=== PATIENT | female | born 1965 | race Caucasian/White ===

== ENCOUNTER 2022-09-20 15:37 | Outpatient (CLI) | payer OTHER, SELFPAY ==
--- NOTE | 2022-09-20 15:40 | CRLHL7_ITS ---
For Patients: As a result of the Century Cures Act, medical imaging exams and procedure reports are released immediately into your electronic medical record. You may view this report before your referring provider. If you have questions, please contact your health care provider. BILATERAL SCREENING MAMMOGRAM WITH COMPUTER-AIDED DETECTION AND TOMOSYNTHESIS TECHNIQUE: CC and MLO views were obtained. These mammographic images have been obtained using full-field digital technique. These mammographic images were interpreted with the benefit of computer-aided detection. Breast Tomosynthesis was used in this interpretation. COMPARISON FILM: 08/06/17, 03/11/14, 01/29/11. FINDINGS: The breasts are heterogeneously dense, which may obscure small masses IMPRESSION: There is no radiographic evidence for malignancy. ASSESSMENT: BI-RADS Category 1: Negative RECOMMENDATION: Routine screening mammogram in 1 year. A lay language report of this examination will be provided to the patient. Levon Daigle M.D. Diagnostic Radiologist [email or web address] DIPTI/jethro morelos/Dictated by: Levon Daigle MD @ 09/21/2022 9:11:00 AM (Electronically Signed)
== END 2022-09-20 15:38 | disposition home or self-care (01) ==
LOC: MAMMO 15:39
DX: Z12.31 Encounter for screening mammogram for malignant neoplasm of breast (principal)
CPT/HCPCS: 77063; 77067

== ENCOUNTER 2024-03-10 13:47 | Outpatient (CLI) | payer OTHER, SELFPAY ==
--- OUTSIDE RECORDS SUMMARY | 2024-03-10 13:50 | XMS_ITS | Encounter Summary ---
Author Name Unknown Organization [facility] Address [address] [place] [address] Care Team Providers Care Knotting Machine Operator Name Role Phone Marcia Diallo MD Primary Care Provider [phone] Reason for Visit * Reason Onset Date Comments Refill 02/24/2024 ipratropium (ATR OVENT) 0.06 % nasal solution Encounter Details Date Type Department Care Team (Late st Contact Info) Description 02/24/2024 Refill [facility] [address] [place] [phone] [place] [address] [place] [phone] Refill (ipratropium (ATROVENT) 0.06 % nasal solution) Social History Tobacco Use Types Packs/Day Years Used Date Smoking Tobacco: Never Smokeless Tobacco: Never Alcohol Use Standard Drinks/Week Comments Not Currently 0 (1 standard drink = 0.6 oz pur e alcohol) Occasional cocktail when out PHQ-2 Answer Date Recorded PHQ-2 Score 1 12/26/2023 Financial Resource Strain Answer Date R ecorded Is it hard for you to pay fo r the very basics like food, housing, medical care or heating? No 12/26/2023 Food Insecurity Answer Date Recorded Does your food run out before you have the money to buy more? No 12/26/2023 Transportation Needs Answer Date Record ed Does a lack of transportatio n keep you from your medical appointments or from getting your medications? No 024 Sex and Gender Information Value Date Recorded Sex Assigned at Not on file Gender Identity Not on file Sexual Orientation Not on file documented as of this encounter Nursing Notes * Kasandra Ramos RN - 02/26/2024 11:00 AM CDT Further Assistance Needed on Refill from Clinician RN reviewed. Medication ordered for short term. Pharmacy requesting 90 day supply Review pended order for accuracy and sign if appropriate Requested Prescriptions Pending Prescriptions Disp Refills ipratropium (ATROVENT) 0.06 % nasal solution 15 mL 5 Sig: Place 2 Sprays into both nostrils 4 times a day. * Porsha Maldonadowifahad Xrwcomm - 02/24/2024 9:49 AM CDT ipratropium (ATROVENT) 0.06 % nasal solution Miscellaneous - 12 Month Visit 1 -> Refill x 12 months (until due for an office visit) -> Calculate the quantity and number of refills manually. Last qualifying visit: 12/26/2023 (with MARCIA DIALLO) Next scheduled visit: None Last ordered by MARCIA DIALLO: 12/26/2023 (60 days ago) QTY: 15, Refills: 5, Sig: place 2 sprays into both nostrils 4 times a day. (unchanged) [facility] Embedded Refills, Reference: [id number], 02/24/2024 9:49:48 AM CDT, Venu: Refill Centralized Services - Primary Care ([id number]) documented in this encounter Plan of Treatment Upcoming Encounters Date Type Department Care Team (Late st Contact Info) Description 05/26/2024 12:30 PM CDT Appointment [facility] Audiology [address] [place] [address]. [place], [place] [phone] Anu Ignacio AU.D. [address] [place] [phone] documented as of this encounter Visit Diagnoses Diagnosis Runny nose Other diseases of nasal cavity and sinuses documented in this encounter Care Teams Knotting Machine Operator Relationship Specialty Start Date End Date Marcia Diallo MD [address] [place] [id number] PCP - General 10/16/02 documented as of this encounter
--- OUTSIDE RECORDS SUMMARY | 2024-03-10 13:50 | XMS_ITS | Clinical Summary ---
Author Name Unknown Organization [facility] Address [address] [place] [address] Care Team Providers Care Teacher Asst Name Role Phone Marcia Diallo MD Primary Care Provider Source Comments You are receiving this document as you are listed as the primary care provider,follow-up provider, or the patient has been referred to you for consultation.This is in compliance with the Medicare and[facility] EHR Incentive Program,which states Providers who transition their patient to another setting of careor provider of care or refers their patient to another provider of care shouldprovide summary care record for each transition of care or referral. [facility] Allergies No known active allergies Medications Medication Sig Dispensed Refills Start Date End Date Status metroNIDAZOLE (METROGEL) 1 % gelIndications:Perio ral dermatitis Apply twice daily to face 45 g 11 03/22/2022 Active terbinafine (LAMISIL) 250 MG tabletIndications:On ychomycosis Take 1 Tablet (250 mg) by mouth daily. 90 Tablet 12/26/2023 Active estradiol (ESTRACE) 0.1 MG/GM vaginal creamIndications:Atr ophic vulvovaginitis Insert 0.5 g vaginally two times a week. 42.5 g 3 12/26/2023 Active buPROPion (WELLBUTRIN XL) 150 MG 24 hour release tabletIndications:Ma didier depressive disorder, recurrent episode, in full remission (HRC) Take 2 tablets (300 mg) by mouth daily 180 Tablet 3 12/26/2023 Active famotidine (PEPCID) 20 MG tablet Take 1 Tablet (20 mg) by mouth two times a day. 180 Tablet 3 01/14/2024 Active ipratropium (ATROVENT) 0.06 % nasal solutionIndications: Runny nose Place 2 Sprays into both nostrils 4 times a day. 45 mL 3 02/26/2024 Active ipratropium (ATROVENT) 0.06 % nasal solutionIndications: Runny nose Place 2 Sprays into both nostrils 4 times a day. 15 mL 5 12/26/2023 Discontinue d(*Med change OR same med OR reorder, new dose/direct ions) Active Problems No known active problems Resolved Problems Problem Noted Date Diagnosed Date Resolved Date Cervical cancer screening 09/04/2016 Overview: 2006 NILM 2011 NILM 2015 NILM, HPV negative 51 y.o. 2023 NILM HPV negative 59 y.o. PLAN, per ASCCP Guidelines: Cotest 12/2028 Stress fracture of metatarsal bone 12/28/2015 08/30/2016 Vitamin D insufficiency 12/28/201503/25 Encounters Date Type Department Care Team Description 02/24/2024 [address] [place] [address] Marcia Diallo MD Refill (ipratropium (ATROVENT) 0.06 % nasal solution) 01/10/2024 [address] [place] [address] Marcia Diallo MD Refill (famotidine (PEPCID) 20 MG tablet) 12/26/2023 10:40 AM SILHOUETTE ARTIST Office Visit [address] [place] [address] Marcia Diallo MD Routine health maintenance (Primary Dx); Encounter for screening mammogram for malignant neoplasm of breast; Hearing difficulty, unspecified laterality; Atrophic vulvovaginitis; Nasal congestion; Onychomycosis; Colon cancer screening; Screening for malignant neoplasm of cervix; Special screening examination for human papillomavirus (HPV); Need for hepatitis C screening test; Lipid screening; Diabetes mellitus screening; Major depressive disorder, recurrent episode, in full remission (HRC); Runny nose 12/26/2023 E-Visit [facility] [address] [facility] [place] [address] Mychart, Generic Provider from Last 3 Months Immunizations Name Administration Dates Next Due Flu Vac (3+ yrs) 09/09/2013,09/29/2012, 7 HepB Adult (Engerix-B, 20+ y rs, 3 dose series) 08/30/2016,09/08/2014,06/02/2014 Influenza IIV4 (Quadrivalent ) 0.5mL (83173) 10/31/2023,07/17/2022,07/13/2021, 020,07/02/2019,09/08/2014 Moderna Bivalent 12+ 07/29/2022 Moderna Monovalent 12+ 11/04/2021,2020,12/31/2020, 021 Td 11/24/1996 Tdap 09/04/2023,09/29/2012 Zoster RZV (Shingrix) 05/01/2021,07/29/2020 Family History Medical History Relation Name Comments Atrial Fib Father Son Depression Father Son anger Hyperlipidemia Father Son Hypertension Father Son Arthritis Mother Father High Cholesterol Mother Father No Known Problems Daughter 1 joint pain Daughter 2 managed with ch iro, exercise Coronary Artery Disease Maternal Grandfather in 50s Depression Maternal Grandmother Grandma Cancer, Breast Paternal Grandmother in 80 s had mastectomy Depression Paternal Grandmother Other Paternal Grandmother fibromy algia and parkinsons Depression Paternal Uncle No Known Problems Sister 1 No Known Problems Sister 2 ADHD Son Anxiety Son Depression Son GERD Son Cancer, Colon Negative Family History Cancer, Ovary Negative Family History Relation Name Status Comments Father Son Alive Mother Father Alive Daughter 1 Alive Daughter 2 Alive Maternal Grandfather Maternal Grandmother Grandma Paternal Grandfather Paternal Grandmother Paternal Uncle Sister 1 Alive Sister 2 Alive Son Alive Social History Tobacco Use Types Packs/Day Years Used Date Smoking Tobacco: Never Smokeless Tobacco: Never Tobacco Cessation:Counseling Given: Not Answered Alcohol Use Standard Drinks/Week Comments Not Currently [...] on file Sexual Orientation Not on file Last Filed Vital Signs Vital Sign Reading Time Taken Comments Blood Pressure 100/64 12/26/2023 10:53 AM SILHOUETTE ARTIST Pulse 66 12/26/2023 10:53 AM SILHOUETTE ARTIST Temperature 36.3 ??C (97.4 ??F) 12/26/2023 10:[address] Respiratory Rate 18 06/22/2015 3:34 PM CDT Oxygen Saturation 98% 12/14/2021 11:19 AM SILHOUETTE ARTIST Inhaled Oxygen Concentration - - Weight 55.8 kg (123 lb) 12/26/2023 10:53 AM SILHOUETTE ARTIST Height 170.2 cm (5' 7) 12/26/2023 10:53 AM SILHOUETTE ARTIST Body Mass Index 19.26 12/26/2023 10:53 AM SILHOUETTE ARTIST Plan of Treatment Upcoming Encounters Date Type Department Care Team (Late st Contact Info) Description 05/26/2024 12:30 PM CDT [facility] [address] [facility] [place] [address] Anu Ignacio AU.D. [address] [place] [address] Health Maintenance Due Date Last Done Comments Colonoscopy 1966 FIT Colon Cancer Screening 2010 Mammogram 12/01/2021 12/01/2020, 07/26, 01/29/2011 COVID-19 Vaccine ( season) 2023 07/29/2022, 11/04/2021, 01/07/2021, Additional history exists Adult Preventive Visit 12/26/2024 , 08/30/2016, 03/02/2014, Additional history exists Cervical Cancer Screening 12/26/20282023, 08/30/2016, 09/29/2012, Additional history exists Cholesterol 12/26/2028 12/26/2023, 02/24, 08/30/2016, Additional history exists DTaP/Tdap/Td (3 - Tdap) 09/04/2033 09/04/20, 09/29/2012, 11/24/1996 HIV Screening (Preventive Services) Completed 08/30/2016 HepB Completed 08/30/2016, 08/25, 06/02/2014 Zoster/Shingles Completed 05/01/2021, 07/29/2020 Influenza Completed 10/31/2023, 06/26, 07/13/2021, Additional history exists Hep C Screening (Preventive Services) Completed 12/26/2023 HepA Aged Out No longer eligi ble based on patient's age to complete this topic Hib Aged Out No longer eligi ble based on patient's age to complete this topic IPV (Polio) Aged Out No longer eligi ble based on patient's age to complete this topic MCV4 Aged Out No longer eligi ble based on patient's age to complete this topic Pneumococcal Aged Out No longer eligi ble based on patient's age to complete this topic Procedures Procedure Name Priority Date/Time Associated Diagnosis Comments HEPATITIS C ANTIBODY, WITH REFLEX Routine 12/26/2023 11:50 AM SILHOUETTE ARTIST Need for hepatitis C screening test HPV WITH 16 18 GENOTYPING, CERVICAL/ENDOCERVI NGOC Routine 12/26/2023 11:50 AM SILHOUETTE ARTIST Special screening examination for human papillomavirus (HPV) HGB A1C Routine 12/26/2023 11:50 AM SILHOUETTE ARTIST Diabetes mellitus screening LIPID PANEL & DIRECT LDL (IF NEEDED) Routine 12/26/2023 11:50 AM SILHOUETTE ARTIST Lipid screening PAP TEST Routine 12/26/2023 11:50 AM SILHOUETTE ARTIST Screening for malignant neoplasm of cervix MM MAMMOGRAM DIAG BILAT W 3D ELIE Routine 12/01/2020 10:19 AM SILHOUETTE ARTIST Breast pain HIV 1/2 AG/AB 4TH GEN Routine 08/30/2016 1:54 PM CDT Preventative health care from Last 3 Months or Most Recently Relevant to Health Maintenance Results * PAP Test (12/26/2023 11:50 AM SILHOUETTE ARTIST) Case Report Pap ? Case: [id number] ? Authorizing Provider: ??Marcia Diallo MD ? Collected: ? 12/26/2023 1150 ? Ordering Location: ? [facility] ?Received: ?12/26/2023 1152 ? First Screen: ?[place], [place] ? (ASCP) ? Specimen: ?Pap Test, Routine, Cervix/Endocervix ? 02/05/2024 8:36 AM [facility] Pap Specimen Adequacy Satisfactory for evaluation, endocervical/lara sformation zone component present. 02/05/2024 8:36 AM [facility] Pap Interpretation (NILM) Negative for intraepithelial lesion or malignancy. 02/05/2024 8:36 AM [facility] Pap Disclaimer The Pap test is a screening test to aid in the detection of cervical and vaginal cancers and their precursor lesions. It is not a diagnostic procedure and should not be used as the sole means of detecting malignancy. Both false-positive and false-negative results may occur. 02/05/2024 8:36 AM [facility] Gross Description The specimen is received in SurePath fixative and properly labeled. 1 Pap-stained SurePath slide is prepared. 02/05/2024 8:36 AM [facility] Embedded Images 8:36 AM [facility] Other Specimen Type ENTIRE ENDOCERVIX / Unknown 12/26/2023 11:50 AM SILHOUETTE ARTIST 12/26/2023 11:52 AM SILHOUETTE ARTIST Comment:LMP: Patient's last menstrual period was 09/25/2012. Marcia Diallo MD LAB PATHOLOGY Performing Organization Address City/State/[facility] Co de Phone Number [address] [address], [place] * HPV with 16 18 Genotyping (12/26/2023 11:50 AM SILHOUETTE ARTIST) HPV High Risk Type 16 PCR Not Detected Not detected 02/05/2024 8:36 AM [facility] HPV High Risk Type 18 PCR Not Detected Not Detected 02/05/2024 8:36 AM [facility] HPV High Risk Other Than 16/18 Not Detected Not detected 02/05/2024 8:36 AM [facility] Cervical Broom ENTIRE ENDOCERVIX / Unknown 12/26/2023 11:50 AM SILHOUETTE ARTIST 12/26/2023 11:52 AM SILHOUETTE ARTIST Narrative [facility] - 02/05/2024 8:36 AM CDT The William HPV test is a qualitative in vitro test for the detection of Human Papillomavirus in SurePath patient specimens. The test utilizes amplification of target DNA by Polymerase Chain Reaction (PCR) and nucleic acid hybridization for the detection of 14 high-risk (HR) HPV types. The assay tests for high risk types (16, 18, 31, 33, 35, 39, 45, 51, 52, 56, 58, 59, 66, and 68). Marcia Diallo MD LAB_1 Performing Organization Address City/[facility]/[place] [address], [place] * (ABNORMAL) Lipid Panel & Direct LDL (if Needed) (12/26/2023 11:50 AM SILHOUETTE ARTIST) Cholesterol 242(H) 0 - 199 mg/dL 12/26/2023 3:12 PM SILHOUETTE ARTIST [facility] Triglyceride 89 <=149 mg/dL 12/26/2023 3:12 PM SILHOUETTE ARTIST [facility] HDL Cholesterol 71 >=40 mg/dL 12/26/2023 3:12 PM [facility] LDL, Calculated 153(H) <130 mg/dL 12/26/2023 3:12 PM SILHOUETTE ARTIST [facility] Non HDL Chol, Calculated 171(H) <=159 mg/dL 12/26/2023 3:12 PM [facility] Cholesterol/HDL Ratio 3.4 <=5.0 12/26/2023 3:12 PM [facility] Hours Fasting 0.1 8 - 12 Hours 12/26/2023 3:12 PM [facility] Blood Venipuncture / Unknown 12/26/2023 11:50 AM SILHOUETTE ARTIST 12/26/2023 11:51 AM SILHOUETTE ARTIST Marcia Diallo MD LAB_1 Performing Organization Address City/[facility]/ZIP Co de Phone Number [facility] [address] [place] [address], [place] * Hepatitis C Antibody, with Reflex (12/26/2023 11:50 AM SILHOUETTE ARTIST) Hepatitis C Antibody Negative (Non Reactive) Negative (Non Reactive) 12/26/2023 3:39 PM [facility] Comment:Antibodies to HCV no t detected. Does not exclude the possiblity of exposure to HCV. Blood Venipuncture / Unknown 12/26/2023 11:50 AM SILHOUETTE ARTIST 12/26/2023 11:51 AM SILHOUETTE ARTIST Marcia Diallo MD LAB_1 Performing Organization Address [facility] Co de Phone Number [facility] [address] * Hgb A1C (12/26/2023 11:50 AM SILHOUETTE ARTIST) Pathologist [facility] Hemoglobin A1C 5.5 <=5.6 % 12/26/2023 5:56 PM [facility] Estimated Average Glucose (Calc) 111 < 117 mg/dL 12/26/2023 5:56 PM [facility] Comment:Estimated average gl ucose (eAG) converts A1c into glucose units (mg/dL) and estimates average glucose over the past approximately 3 months. The eAG reference interval (<117 mg/dL) corresponds to an A1c of <5.7%. Blood Venipuncture / Unknown 12/26/2023 11:50 AM SILHOUETTE ARTIST 12/26/2023 11:51 AM SILHOUETTE ARTIST Marcia Diallo MD LAB_1 Performing Organization Address [facility] Co de Phone Number [facility] [address] * MM Mammogram Diag Bilat W 3D Elie (12/01/2020 10:19 AM SILHOUETTE ARTIST) Anatomical Region Laterality Modality Breast Bilateral Mammography 12/01/2020 10:1 9 AM SILHOUETTE ARTIST Narrative 12/01/2020 10:47 AM SILHOUETTE ARTIST [facility] MM MAMMOGRAM DIAG BILAT W 3D ELIE 12/01/2020 10:19 AM INDICATION: 55-year-old woman who has had mild tenderness upper outer and lower outer left breast intermittently for 6 months, no lump or nipple discharge COMPARISON: 08/06/2017, 03/11/2014, 01/29/2011 FINDINGS: The breasts are heterogeneously dense, which may obscure small masses. There is no radiographic evidence of malignancy. Images evaluated with the assistance of computer-aided detection. Breast tomosynthesis was used in interpretation. ACR BI-RADS Category 1: Negative. Annual screening mammogram recommended. Results given to the patient. Procedure Note Pao Kay MD - 12/01/2020 [facility] MAMMOGRAM DIAG BILAT W 3D ELIE 12/01/2020 10:19 AM INDICATION: 55-year-old woman who has had mild tenderness upper outer andlower outer left breast intermittently for 6 months, no lump or nippledischarge COMPARISON: 08/06/2017, 03/11/2014, 01/29/2011 FINDINGS: The breasts are heterogeneously dense, which may obscure smallmasses. There is no radiographic evidence of malignancy. Images evaluatedwith the assistance of computer-aided detection. Breast tomosynthesis wasused in interpretation. ACR BI-RADS Category 1: Negative. Annual screening mammogram recommended. Results given to the patient. Marcia Diallo MD RAD NEDA * HIV 1/2 Ag/Ab 4th Generation (08/30/2016 1:54 PM CDT) HIV 1/2 AG/AB 4thGEN Negative (Non Reactive) [facility] Comment:HIV-1 p24 Ag and HIV -1/HIV-2 Ab not detected. 08/30/2016 1:54 PM CDT 08/30/2016 1:57 PM CDT Narrative [facility] - 08/30/2016 6:42 PM CDT Performed at [facility], [address] [place] [address] ??[id number] Marcia Diallo MD LAB_1 [facility] [phone] from Last 3 Months or Most Recently Relevant to Health Maintenance Care Teams Teacher Asst Relationship Specialty Start Date End Date Marcia Diallo MD [address] [place] [phone] PCP - General 10/16/02
--- OUTSIDE RECORDS SUMMARY | 2024-03-10 13:50 | XMS_ITS | Encounter Summary ---
Author Name Unknown Organization [facility] Address [address] [place] [address] Care Team Providers Care Endocrinology Teacher Name Role Phone Marcia Diallo MD Primary Care Provider [phone] Reason for Visit * Reason Onset Date Comments Refill 01/10/2024 famotidine (PEPC ID) 20 MG tablet Encounter Details Date Type Department Care Team (Late st Contact Info) Description 01/10/2024 Refill [facility] [address] [place] [phone] [place] [address] [place] [address] Refill (famotidine (PEPCID) 20 MG tablet) Social History Tobacco Use Types Packs/Day Years [...] Nursing Notes * Kasandra Ramos RN - 01/14/2024 8:02 AM CST Further Assistance Needed on Refill from Clinician RN reviewed. Medication ordered for short term. Medication ordered for short term supply only and Pharmacy requesting 90 day supply Review pended order for accuracy and sign if appropriate Requested Prescriptions Pending Prescriptions Disp Refills famotidine (PEPCID) 20 MG tablet 180 Tablet 3 Sig: Take 1 Tablet (20 mg) by mouth two times a day. WOOD GRINDER * Interface, Out Surescripts Prov Query - 01/10/2024 7:10 AM CST famotidine (PEPCID) 20 MG tablet Miscellaneous - 12 Month Visit 1 -> Refill x 12 months, qty: 180, refills: 3 (until due for an office visit) Last qualifying visit: 12/26/2023 (with MARCIA DIALLO) Next scheduled visit: None Last ordered by MARCIA DIALLO: 12/26/2023 (15 days ago) QTY: 60, Refills: 0, Sig: take 1 tablet (20 mg) by mouth two times a day. (unchanged) [facility] Embedded Refills, Reference: [id number], 01/10/2024 7:10:12 AM Venu CARDOZA: Refill Centralized Services - Primary Care ([id number]) WOOD GRINDER documented in this encounter Plan of Treatment Upcoming Encounters Date Type Department Care Team (Late st Contact Info) Description 05/26/2024 12:30 PM CDT Appointment [facility] Audiology [address] [facility]. [place], [place] [phone] Anu Ignacio AU.D. [address] [place], [place] [phone] documented as of this encounter Visit Diagnoses Not on filedocumented in this encounter Care Teams Endocrinology Teacher Relationship Specialty Start Date End Date Marcia Diallo MD [address] [place] [address] PCP - General 10/16/02 documented as of this encounter
--- OUTSIDE RECORDS SUMMARY | 2024-03-10 13:50 | XMS_ITS | Clinical Summary ---
Author Name Unknown Organization [facility] Address [address] [place] [id number] Care Team Providers Care Drywaller Name Role Phone [facility] Primary Care Provid er Allergies No known active allergies Medications No known medications Social History Tobacco Use Types Packs/Day Years Used Date Smoking Tobacco: Never Assessed Adolescent Education Answer Date Record ed Getting School Help Needed Not on file 09/08 Sex and Gender Information Value Date Recorded Sex Assigned at Not on file Gender Identity Not on file Sexual Orientation Not on file Last Filed Vital Signs Vital Sign Reading Time Taken Comments Blood Pressure 108/64 07/06/2023 10:45 PM CDT Pulse 53 07/06/2023 10:45 PM CDT Temperature 36.6 ??C (97.9 ??F) 07/06/2023 9:23 PM CD T Respiratory Rate 18 07/06/2023 9:23 PM CDT Oxygen Saturation 97% 07/06/2023 10:45 PM CDT Inhaled Oxygen Concentration - - Weight 56.7 kg (125 lb) 07/06/2023 9:23 PM CDT Height 170.2 cm (5' 7) 07/06/2023 9:23 PM CDT Body Mass Index 19.58 07/06/2023 9:23 PM CDT Plan of Treatment Health Maintenance Due Date Last Done Comments ADVANCE CARE PLANNING 1966 ANNUAL REVIEW OF HM ORDERS 1966 CT COLONOGRAPHY 1966 FIT 1966 FLEX SIG 1966 GLUCOSE 1966 sDNA (Cologuard) 1966 COLONOSCOPY 01/24/1976 COLORECTAL CANCER SCREENING 01/24/1976 HIV SCREENING 1981 HEPATITIS C SCREENING 01/24/1984 PAP 1987 LIPID 2006 YEARLY PREVENTIVE VISIT 11/07/2008 11/07/20 07, 03/06/2005, 10/26/2002, Additional history exists DTAP/TDAP/TD IMMUNIZATION (2 - Td or Tdap) 09/29/2022 09/29/2012, 11/24/1996 MAMMO SCREENING 12/01/2022 12/01/2020 COVID-19 Vaccine ( season) 2023 07/29/2022, 11/04/2021, 12/31/2020, Additional history exists INFLUENZA VACCINE (#1) 2023 2, 07/13/2021, 07/10/2020, Additional history exists PHQ-2 (once per calendar year) 2023 HEPATITIS B IMMUNIZATION Completed 016, 09/08/2014, 06/02/2014 ZOSTER IMMUNIZATION Completed 05/01/2021, 0 HPV IMMUNIZATION Aged Out No longer e ligible based on patient's age to complete this topic IPV IMMUNIZATION Aged Out No longer e ligible based on patient's age to complete this topic MENINGITIS IMMUNIZATION Aged Out No l onger eligible based on patient's age to complete this topic Pneumococcal Vaccine: Pediatrics (0 to 5 Years) and At-Risk Patients (6 to 64 Years) Aged Out No longer eligible based on patient's age to complete this topic RSV MONOCLONAL ANTIBODY Aged Out No l onger eligible based on patient's age to complete this topic Procedures Procedure Name Priority Date/Time Associated Diagnosis Comments MA DIAGNOSTIC BILATERAL W/ CHILO Routine 12/01/2020 10:19 AM TOW MOTOR DRIVER from Last 3 Months or Most Recently Relevant to Health Maintenance Care Teams Drywaller Relationship Specialty Start Date End Date [facility], [address], [address] [place] [address] PCP - General 07/06/23
--- OUTSIDE RECORDS SUMMARY | 2024-03-10 13:50 | XMS_ITS | Referral Summary ---
Author Name Unknown Organization [facility] Address [address] [place] [address] Care Team Providers Care Materials Clerk Name Role Phone [facility] Provid er Allergies No known [...] 07/06/2023 9:23 PM CDT Plan of Treatment Not on file Procedures Procedure Name Priority Date/Time Associated Diagnosis Comments MA DIAGNOSTIC BILATERAL W/ CHILO Routine 12/01/2020 10:19 AM PROFESSIONAL WRESTLER from Last 3 Months or Most Recently Relevant to Health Maintenance Care Teams Materials Clerk Relationship Specialty Start Date End [facility] [address] [place] [address], [address] [place] [address] PCP - General 07/06/23
--- OUTSIDE RECORDS SUMMARY | 2024-03-10 13:51 | XMS_ITS | Encounter Summary ---
Author Name Unknown Organization [facility] Address [address] [place] [address] Care Team Providers Care Entrance Guard Name Role Phone Marcia Diallo MD Primary Care Provider [phone] Encounter Details Date Type Department Care Team (Late st Contact Info) Description 02/22/2016 Correspondence [facility] [address] [place] [address] Gregoria Sinha, DPMaida [address] [place] [address] FITNESS FOR D[employer] CERT FORM Social History Tobacco Use Types Packs/Day Years Used Date Smoking Tobacco: Never Smokeless Tobacco: Never Alcohol Use Standard Drinks/Week Comments Yes 0 (1 standard drink = 0.6 oz pur e alcohol) rare Sex and Gender Information Value Date Recorded Sex Assigned at Not on file Gender Identity Not on file Sexual Orientation Not on file documented as of this encounter Plan of Treatment Upcoming Encounters Date Type Department Care Team (Late st Contact Info) Description 05/26/2024 12:30 PM CDT Appointment [facility] Aud[facility] [address] [facility]. [place], [place] [phone] Anu Ignacio AU.D. [address] [place], [place] [phone] documented as of this encounter Visit Diagnoses Not on filedocumented in this encounter Care Teams Entrance Guard Relationship Specialty Start Date End Date Marcia Diallo MD [address] [place] [address] PCP - General 10/16/02 documented as of this encounter
--- OUTSIDE RECORDS SUMMARY | 2024-03-10 13:51 | XMS_ITS | Encounter Summary ---
Author Name Unknown Organization [facility] Address [address] [place] [address] Care Team Providers Care Warehouse Technician Name Role Phone Marcia Diallo MD Primary Care Provider Encounter Details Date Type Department Care Team (Late st Contact Info) Description 02/01/2016 Correspondence [facility] [address] [place] [address] Gregoria Sinha, DPMaida [address] [place] [address] SHORT TERM DISABILITY Social History Tobacco Use Types Packs/Day Years [...] Info) Description 05/26/2024 12:30 PM CDT Appointment [facility] Audiology [address] [facility]. [place], [place] [phone] Anu Ignacio AU.D. [address] [place], [place] [phone] documented as of this encounter Visit Diagnoses Not on filedocumented in this encounter Care Teams Warehouse Technician Relationship Specialty Start Date End Date Marcia Diallo MD [address] [place] [address] PCP - General 10/16/02 documented as of this encounter
--- OUTSIDE RECORDS SUMMARY | 2024-03-10 13:51 | XMS_ITS | Encounter Summary ---
Author Name Unknown Organization [facility] Address [address] [place] [address] Care Team Providers Care Math Instructor Name Role Phone Marcia Diallo MD Primary Care Provider Encounter Details Date Type Department Care Team (Late Contact Info) Description 12/26/2023 [facility] [address] [facility] [place] [address] [place], [place] [address] Social History Tobacco Use Types Packs/Day Years [...] Info) Description 05/26/2024 12:30 PM CDT Appointment [facility] Audiology [address] [facility] [place], [place] [phone] Anu Ignacio AU.D. [address] [place], [place] [phone] documented as of this encounter Visit Diagnoses Not on filedocumented in this encounter Care Teams Math Instructor Relationship Specialty Start Date End Date Marcia Diallo MD [address] [place] [address] PCP - General 10/16/02 documented as of this encounter
--- OUTSIDE RECORDS SUMMARY | 2024-03-10 13:51 | XMS_ITS | Encounter Summary ---
Author Name Unknown Organization [facility] Address [address] [place] [address] Care Team Providers Care Motor Vehicle Operator Road Supervisor Name Role Phone Marcia Diallo MD Primary Care Provider Reason for Referral * Consult/Transfer Care (Routine) - New Request Specialty Diagnoses / Procedures Referred By Antonia manuel Referred To Contact Diagnoses Nasal congestion Marcia Diallo MD [address] [place] [address] Referral ID Status Reason Start Date Expiration Date V isits Requested Visits Authorized [id number] New Request 12/26/2023 03/26/2025 1 1 Scheduling Instructions Your clinician has recommended an appointment with [facility]. You can quickly make your appointment online at [email or web address]. You can also call [phone] for help scheduling your appointment. We suggest you call your health insurance company about your coverage and benefits for this appointment. Question Answer Appointment Urgency? Non-Urgent Reason for visit? allergies possibly, intermittent congestion, runny nose, postnasal drainage and ears plugging ITY CONTROL DIRECTOR * Consult/Transfer Care (Routine) - New Request Specialty Diagnoses / Procedures Referred By Antonia manuel Referred To Contact Diagnoses Hearing difficulty, unspecified laterality Marcia Diallo MD [address] [place] [address] Referral ID Status Reason Start Date Expiration Date V isits Requested Visits Authorized [id number] New Request 12/26/2023 03/26/2025 1 1 Scheduling Instructions Your clinician has recommended an appointment with [facility]. You may call [phone] to schedule your appointment. We suggest you call your health insurance company about your coverage and benefits for this appointment. Question Answer Appointment Urgency? Non-Urgent Reason for visit? hearing difficulty in certain circumstances, difficulty distinguishing some sounds for a year or two, uncertain if ears are different ITY CONTROL DIRECTOR * Procedure/Equipment (Routine) - Incomplete Specialty Diagnoses / Procedures Referred By Antonia manuel Referred To Contact Diagnoses Encounter for screening mammogram for malignant neoplasm of breast Procedures MM Mammogram Screening Marcia Wayne MD [address] [place] [address] Referral ID Status Reason Start Date Expiration Date V isits Requested Visits Authorized [id number] Incomplete 12/26/2023 03/26/2025 1 1 ITY CONTROL DIRECTOR Reason for Visit * Reason Comments ROUTINE HEALTH MAINTENANCE Encounter Details Date Type Department Care Team (Late st Contact Info) Description 12/26/2023 10:40 AM QUALITY CONTROL DIRECTOR Office Visit [facility] [address] [place] [id number] Marcia Diallo MD [address] [facility] [place] [id number] Routine health maintenance (Primary Dx); Encounter for screening mammogram for malignant neoplasm of breast; Hearing difficulty, unspecified laterality; Atrophic vulvovaginitis; Nasal congestion; Onychomycosis; Colon cancer screening; Screening for malignant neoplasm of cervix; Special screening examination for human papillomavirus (HPV); Need for hepatitis C screening test; Lipid screening; Diabetes mellitus screening; Major depressive disorder, recurrent episode, in full remission (HRC); Runny nose Social History Tobacco Use Types Packs/Day Years [...] on file documented as of this encounter Last Filed Vital Signs Vital Sign Reading Time Taken Comments Blood Pressure 100/64 12/26/2023 10:53 AM QUALITY CONTROL DIRECTOR Pulse 66 12/26/2023 10:53 AM QUALITY CONTROL DIRECTOR Temperature 36.3 ??C (97.4 ??F) 12/26/2023 10:[address] Respiratory Rate - - Oxygen Saturation - - Inhaled Oxygen Concentration - - Weight 55.8 kg (123 lb) 12/26/2023 10:53 AM QUALITY CONTROL DIRECTOR Height 170.2 cm (5' 7) 12/26/2023 10:53 AM QUALITY CONTROL DIRECTOR Body Mass Index 19.26 12/26/2023 10:53 AM QUALITY CONTROL DIRECTOR documented in this encounter Patient Instructions * Patient Instructions* Jenni Casiano MA - 12/26/2023 10:40 AM QUALITY CONTROL DIRECTOR Images from the original note were not included. Well Visit, Ages 18 to 65: Care Instructions Well visits can help you stay healthy. Your doctor has checked your overall health and may have suggested ways to take good care of yourself. Your doctor also may have recommended tests. You can helpprevent illness with healthy eating, good sleep, vaccinations, regular exercise, and other steps. Get the tests that you and your doctor decide on. Depending on your age and risks, examples might include screening for diabetes; hepatitis C; HIV; and cervical, breast, lung, and colon cancer. Screening helps find diseases before any symptoms appear. Eat healthy foods. Choose fruits, vegetables, whole grains, lean protein, and low-fat dairy foods. Limit saturated fat and reduce salt. Limit alcohol. Men should have no more than 2 drinks a day. Women should have no more than 1. For some people, no alcohol is the best choice. Exercise. Get at least 30 minutes of exercise on most days of the week. Walking can be a good choice. Reach and stay at your healthy weight. This will lower your risk for many health problems. Take care of your mental health. Try to stay connected with friends, family, and community, and find ways to manage stress. If you're feeling depressed or hopeless, talk to someone. A counselor can help. If you don't have acounselor, talk to your doctor. Talk to your doctor if you think you may have a problem with alcohol or drug use. This includes prescription medicines, marijuana, and other drugs. Avoid tobacco and nicotine: Don't smoke, vape, or chew. If you need help quitting, talk to your doctor. Practice safer sex. Getting tested, using condoms or dental dams, and limiting sex partners can help prevent STIs. Use control if it's important to you to prevent . Talk with your doctor about your choices and what might be best for you. Prevent problems where you can. Protect your skin from too much sun, wash your hands, brush your teeth twice a day, and wear a seat belt in the car. Where can you learn more? 1. Go to https://www.Roadnet.MoveInSync/healthlibrary. 2. Enter P072 in the search box. Current as of: June 30, 2023?Content Version: 13.9 ?? [employer]. Care instructions adapted under license by your healthcare professional. If you have questions about a medical condition or this instruction, always ask your healthcare professional. [employer] disclaims any warranty or liability for your use of this information. ITY CONTROL DIRECTOR documented in this encounter Progress Notes * Marcia Diallo MD - 12/26/2023 10:40 AM CST Subjective Shara presents for ROUTINE HEALTH MAINTENANCE Current concerns: 1) Possible environmental allergies. Shara notes waxing and waning but frequent nasal and sinus congestion, runny nose, but denies any sneezing or itching in nose, no eye symptoms. She thinks it's anindoor allergy, as it happens at work most days. She's not sure about her insurance coverage for allergy testing vs allergy clinic visit, and will look into that. 2) vag dryness and painful sex in the last few years, has stopped their sex life completely due to pain. She sees people come in to pharmacy getting rx for estradiol cream, wonders if that would helppossibly. 3) toenail fungus and athlete's foot which has been an issue for a very long time. She's been prescribed terbinafine several times in the past, but never got the prescription filled or started takingit. She'd like to try it now, needs a new prescription. 4) hearing difficulty at times, sometimes at work where sound on a drive through is indistinct, andshe misunderstands pharmacy customer's concerns or directions. She's not sure if it's either side specifically, not sure if both ears. She'd like to get that checked more formally. Consumption of fruits and vegetables is (P) 2 - 4 servings each day. Exercise is (P) Infrequent. Hearing concerns: (P) Yes Feels safe at home: (P) Yes Objective BP 100/64 (BP Location: Right Arm, BP Cuff Size: Large) Pulse 66 Temp 97.4 ??F (36.3 ??C) (Tympanic) Ht 5' 7 (1.702 m) Wt 123 lb (55.8 kg) LMP 09/25/2012 BMI 19.26 kg/m?? General: Appears stated age, alert and comfortable HEENT: normal eyes, ears, throat, oropharynx Neck: thyroid normal, moderately large lymph nodes bilaterally about 1-2 cm below posterior jaw, not tender, rubbery, mobile Lungs: clear to auscultation, no wheezes or rales Breasts: deferred CV: regular rate and rhythm, normal S1 and S2 without murmur or click Abd: Soft, non-tender, no masses, no hepatomegaly or splenomegaly. : vagina: normal and atrophic external genitalia atrophic cervix: Pap taken and os narrowed, cervix pale but even color Skin: no significant abnormalities noted Assessment/Plan 1. Routine health maintenance 2. Need for hepatitis C screening test - Hepatitis C Antibody, with Reflex; Future - Hepatitis C Antibody, with Reflex 3. Encounter for screening mammogram for malignant neoplasm of breast - MM Mammogram Screening Bilat W CAD; Future 4. Screening for malignant neoplasm of cervix - Scr Pap Smer; Obtain Prep&Convy-Lab - PAP Test 5. Special screening examination for human papillomavirus (HPV) - HPV with 16 18 Genotyping 6. Hearing difficulty, unspecified laterality - Audiology Consult-Adult/Peds 7. Nasal congestion - Allergy And Immunology Consult Adult/Peds 8. Onychomycosis - terbinafine (LAMISIL) 250 MG tablet; Take 1 Tablet (250 mg) by mouth daily. Dispense: 90 Tablet; Refill: 0 9. Colon cancer screening - FIT Colon Rectal Cancer Screening; Future 10. Lipid screening - Lipid Panel & Direct LDL (if Needed); Future - Lipid Panel & Direct LDL (if Needed) 11. Diabetes mellitus screening - Hgb A1C; Future - Hgb A1C 12. Atrophic vulvovaginitis - estradiol (ESTRACE) 0.1 MG/GM vaginal cream; Insert 0.5 g vaginally two times a week. 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 [place], [place] [phone] Anu Ignacio AU.D. [address] [place], [place] [phone] Scheduled Orders Name Type Priority Associated Diagnoses Orde r Schedule MM Mammogram Screening Bilat W CAD Imaging New Routine Encounter for screening mammogram for malignant neoplasm of breast Expected: 12/26/2023 (Approximate), Expires: 12/25/2024 FIT Colon Rectal Cancer Screening Lab Routine Colon cancer screening Expected: 12/26/2023, Expires: 12/25/2024 Scheduled Referrals Name Type Priority Associated Diagnoses Orde r Schedule Audiology Consult-Adult/Peds Referral Routine Hearing difficulty, unspecified laterality Ordered: 12/26/2023 Allergy And Immunology Consult Adult/Peds Referral Routine Nasal congestion Ordered: 12/26/2023 documented as of this encounter Procedures Procedure Name Priority Date/Time Associated Diagnosis Comments PAP TEST Routine 12/26/2023 11:50 AM QUALITY CONTROL DIRECTOR Screening for malignant neoplasm of cervix HPV WITH 16 18 GENOTYPING, CERVICAL/ENDOCERVI NGOC Routine 12/26/2023 11:50 AM QUALITY CONTROL DIRECTOR Special screening examination for human papillomavirus (HPV) LIPID PANEL & DIRECT LDL (IF NEEDED) Routine 12/26/2023 11:50 AM QUALITY CONTROL DIRECTOR Lipid screening HEPATITIS C ANTIBODY, WITH REFLEX Routine 12/26/2023 11:50 AM QUALITY CONTROL DIRECTOR Need for hepatitis C screening test HGB A1C Routine 12/26/2023 11:50 AM QUALITY CONTROL DIRECTOR Diabetes mellitus screening documented in this encounter Results * Hgb A1C (12/26/2023 11:50 AM QUALITY CONTROL DIRECTOR) Hemoglobin A1C 5.5 <=5.6 % 12/26/2023 5:56 PM QUALITY CONTROL DIRECTOR [facility] Estimated Average Glucose (Calc) 111 < 117 mg/dL 12/26/2023 5:56 PM QUALITY CONTROL DIRECTOR [facility] Comment:Estimated average gl ucose (eAG) converts A1c into glucose units (mg/dL) and estimates average glucose over the past approximately 3 months. The eAG reference interval (<117 mg/dL) corresponds to an A1c of <5.7%. Blood Venipuncture / Unknown 12/26/2023 11:50 AM QUALITY CONTROL DIRECTOR 12/26/2023 11:51 AM QUALITY CONTROL DIRECTOR Marcia Diallo MD LAB_1 Performing Organization Address [facility] Co de Phone Number [facility] [address] * (ABNORMAL) Lipid Panel & Direct LDL (if Needed) (12/26/2023 11:50 AM QUALITY CONTROL DIRECTOR) Cholesterol 242(H) 0 - 199 mg/dL 12/26/2023 3:12 PM QUALITY CONTROL DIRECTOR [facility] Triglyceride 89 <=149 mg/dL 12/26/2023 3:12 PM QUALITY CONTROL DIRECTOR [facility] HDL Cholesterol 71 >=40 mg/dL 12/26/2023 3:12 PM QUALITY CONTROL DIRECTOR [facility] LDL, Calculated 153(H) <130 mg/dL 12/26/2023 3:12 PM QUALITY CONTROL DIRECTOR [facility] Non HDL Chol, Calculated 171(H) <=159 mg/dL 12/26/2023 3:12 PM [facility] Cholesterol/HDL Ratio 3.4 <=5.0 12/26/2023 3:12 PM [facility] Hours Fasting 0.1 8 - 12 Hours 12/26/2023 3:12 PM [facility] Blood Venipuncture / Unknown 12/26/2023 11:50 AM QUALITY CONTROL DIRECTOR 12/26/2023 11:51 AM QUALITY CONTROL DIRECTOR Marcia Diallo MD LAB_1 Performing Organization Address City/[facility]/ZIP Co de Phone Number [facility] [address] * HPV with 16 18 Genotyping (12/26/2023 11:50 AM QUALITY CONTROL DIRECTOR) HPV High Risk Type 16 PCR Not Detected Not detected 02/05/2024 8:36 AM [facility] HPV High Risk Type 18 PCR Not Detected Not Detected 02/05/2024 8:36 AM [facility] HPV High Risk Other Than 16/18 Not Detected Not detected 02/05/2024 8:36 AM CDT [facility] Cervical Broom ENTIRE ENDOCERVIX / Unknown 12/26/2023 11:50 AM QUALITY CONTROL DIRECTOR 12/26/2023 11:52 AM QUALITY CONTROL DIRECTOR [facility] - 02/05/2024 8:36 AM CDT [facility] [...] 66, and 68). Marcia Diallo MD LAB_[address] [place] [address] * PAP Test (12/26/2023 11:50 AM QUALITY CONTROL DIRECTOR) Case Report Pap ? Case: [id number] ? Authorizing Provider: ??Marcia Diallo MD ? Collected: ? 12/26/2023 1150 ? Ordering Location: ? [facility] ?Received: ?12/26/2023 1152 ? First Screen: ?[place], [place] ? (ASCP) ? Specimen: ?Pap Test, Routine, Cervix/Endocervix ? 02/05/2024 8:36 AM [facility] Pap Specimen Adequacy Satisfactory for evaluation, endocervical/lara sformation zone component present. 02/05/2024 8:36 AM [facility] Pap Interpretation (NILM) Negative for intraepithelial lesion or malignancy. 02/05/2024 8:36 AM [facility] Pap Disclaimer The Pap test is a screening test to aid in the detection of cervical and vaginal cancers and their precursor lesions. It is not a diagnostic procedure and should not be used as the sole means of detecting malignancy. Both false-positive and false-negative results may occur. 02/05/2024 8:36 AM [facility] Gross Description The specimen is received in SurePath fixative and properly labeled. 1 Pap-stained SurePath slide is prepared. 02/05/2024 8:36 AM [facility] Embedded Images 8:36 AM [facility] Other Specimen Type ENTIRE ENDOCERVIX / Unknown 12/26/2023 11:50 AM QUALITY CONTROL DIRECTOR 12/26/2023 11:52 AM QUALITY CONTROL DIRECTOR Comment:LMP: Patient's last menstrual period was 09/25/2012. Marcia Diallo MD LAB PATHOLOGY [address] [address], [facility] * Hepatitis C Antibody, with Reflex (12/26/2023 11:50 AM QUALITY CONTROL DIRECTOR) Hepatitis C Antibody Negative (Non Reactive) Negative (Non Reactive) 12/26/2023 3:39 PM QUALITY CONTROL DIRECTOR [facility] Comment:Antibodies to HCV no t detected. Does not exclude the possiblity of exposure to HCV. Blood Venipuncture / Unknown 12/26/2023 11:50 AM QUALITY CONTROL DIRECTOR 12/26/2023 11:51 AM QUALITY CONTROL DIRECTOR Marcia Diallo MD LAB_1 [facility] [address] documented in this encounter Visit Diagnoses Diagnosis Routine health maintenance- Primary Routine general medical examination at a health care facility Encounter for screening mammogram for malignant neoplasm of breast Other screening mammogram Hearing difficulty, unspecified laterality Atrophic vulvovaginitis Postmenopausal atrophic vaginitis Nasal congestion Other diseases of nasal cavity and sinuses Onychomycosis Dermatophytosis of nail Colon cancer screening Special screening for malignant neoplasms, colon Screening for malignant neoplasm of cervix Screening for malignant neoplasm of the cervix Special screening examination for human papillomavirus (HPV) Need for hepatitis C screening test Special screening examination for other specified viral diseases Lipid screening Screening for lipoid disorders Diabetes mellitus screening Screening for diabetes mellitus Major depressive disorder, recurrent episode, in full remission (HRC) Major depressive disorder, recurrent episode, in full remission Runny nose Other diseases of nasal cavity and sinuses documented in this encounter Care Teams Motor Vehicle Operator Road Supervisor Relationship Specialty Start Date End Date Marcia Diallo MD [address] [place] [address] PCP - General 10/16/02 documented as of this encounter
--- OUTSIDE RECORDS SUMMARY | 2024-03-10 13:51 | XMS_ITS | Encounter Summary ---
Author Name Unknown Organization [facility] Address [address] [place] [address] Care Team Providers Care Carpenter Supervisor Wooden Ship Name Role Phone Marcia Diallo MD Primary Care Provider [phone] Encounter Details Date Type Department Care Team (Late Contact Info) Description 12/08/2015 Correspondence External to External, [place] [address] SERVICES COVERAGE DENIED Social History Tobacco Use Types Packs/Day Years [...] Info) Description 05/26/2024 12:30 PM CDT Appointment [facility] [address] [facility]. [place], [place] [phone] Anu Ignacio AU.D. [address] [place], [place] [phone] documented as of this encounter Visit Diagnoses Not on filedocumented in this encounter Care Teams Carpenter Supervisor Wooden Ship Relationship Specialty Start Date End Date Marcia Diallo MD [address] [place] [address] PCP - General 11/22/02 documented as of this encounter
--- NOTE | 2024-03-10 14:00 | MM_ITS ---
Patient: TIFFANI PATIÑO Facility:?[facility] Patient ID:?[id number] Site Patient ID:?[id number]. Site :?[id number] Study:?XRay-Breast 3D W/ CAD-03/10/2024 7:11:00 AM Ordering Physician:?Marcia Diallo Final Report: BILATERAL SCREENING MAMMOGRAM WITH COMPUTER-AIDED DETECTION AND TOMOSYNTHESIS TECHNIQUE: CC and MLO views were obtained. These mammographic images have been obtained using full-field digital technique. These mammographic images were interpreted with the benefit of computer-aided detection. Breast Tomosynthesis was used in this interpretation. COMPARISON FILM: 09/20/2022, 08/06/2017, 03/11/2014. FINDINGS: There are scattered areas of fibroglandular density. IMPRESSION: There is no radiographic evidence for malignancy. ASSESSMENT: BI-RADS Category 1: Negative RECOMMENDATION: Routine screening mammogram in 1 year. A lay language report of this examination will be provided to the patient. Levon Daigle M.D. Diagnostic Radiologist [email or web address] DSM/sp R& Transcribed: 6:52 p.m. SP/Dictated by: Levon Daigle MD @ 03/11/2024 10:57:00 AM Signed by:?Levon Daigle MD @03/12/2024 5:21:56 AM (Electronic Signature)
== END 2024-03-10 13:48 | disposition home or self-care (01) ==
LOC: MAMMO 13:49
PROVIDERS: Visit Provider Family Medicine
DX: Z12.31 Encounter for screening mammogram for malignant neoplasm of breast (principal)
CPT/HCPCS: 77063; 77067